=== PATIENT | male | born 1955 | race African-American/Black ===

== ENCOUNTER 2024-01-02 06:31 | Inpatient (IN) | payer MEDICARE, SELFPAY ==
[2024-01-02 08:29] LABS: #Basophils Less than 0.03 10x3/uL (0.0-0.2); #Eosinphils Less than 0.03 10x3/uL (0.0-0.7); %Basophils 0.2 % (0.0-1.0); %Eosinophils 0.1 % (0.0-10.0); %Lymphocytes 11.7 % (21.0-51.0); %Monocytes 4.1 % (0.0-10.0); %Neutrophils 83.2 % (42.0-75.0); Hematocrit 42.7 % (42.0-52.0); Hemoglobin 14.2 g/dL (14.0-18.0); Mean Corpuscular HGB CONC 33.3 g/dL (32.0-36.0); Mean Corpuscular Hemoglobin 29.8 pg (27.0-31.0); Mean Corpuscular Volume 89.7 fL (78.0-98.0); Mean Platelet Volume 9.2 fL (7.4-10.4); Platelet Count 258 10x3/uL (130-400); RBC Distribution Width 12.2 % (11.5-14.5); Red Blood Cell (RBC) Count 4.76 mill/uL (4.70-6.10)
[2024-01-02 08:46] LABS: Acetaminophen Less than 10 mcg/mL (10.0-30.0); Alcohol Less than 10.0 mg/dL (Less than 10); CK (CPK) 60 U/L (30-200); Lipase 22 U/L (8-78); Salicylate Less than 8.0 mg/dL (15.0-30.0)
[2024-01-02 08:47] LABS: ALT (SGPT) 36 U/L (8-55); AST (SGOT) 20 U/L (5-34); Albumin 3.6 g/dL (3.4-4.8); Alkaline Phosphatase 103 U/L (40-110); Anion Gap 17 mmol/L (10-20); BUN (Urea Nitrogen) 36 mg/dL (8.4-25.7); Bilirubin, Total 0.6 mg/dL (0.2-1.2); Calc. Creatinine Clearance 0 mL/min (70-130); Calcium 11.1 mg/dL (7.8-10.44); Carbon Dioxide 19 mmol/L (23-31); Chloride 100 mmol/L (98-107); Estimated GFR 33; Globulin 4.9 g/dL (2.4-3.5); Glucose 300 mg/dL (80-115); Potassium 4.1 mmol/L (3.5-5.1); Protein, Total 8.5 g/dL (5.8-8.1); Sodium 132 mmol/L (136-145)
[2024-01-02 09:05] LABS: Troponin I 0.042 ng/mL (< 0.028)
[2024-01-02] MEDS ORDERED: Labetalol HCl 100 MG/20 ML VIAL ONE (09:12)
[2024-01-02] MEDS ORDERED: Aspirin Chewable 81 MG TAB ONE (09:40)
[2024-01-02] MEDS ORDERED: Acetaminophen 325 MG TAB PO PRN (09:55)
[2024-01-02] MEDS ORDERED: Acetaminophen 650 MG Suppository PR PRN (09:55)
[2024-01-02] MEDS ORDERED: Ondansetron ODT 4 MG TAB PO PRN (09:55)
[2024-01-02] MEDS ORDERED: Ondansetron PF 4 MG/2 ML Vial IVP PRN (09:55)
[2024-01-02] MEDS ORDERED: Piperacillin/Tazobactam 3.375 GM VIAL ONE ×2 (10:35→16:58)
[2024-01-02] MEDS ORDERED: Sodium Chloride 0.9% 100 ML ONE (10:36)
[2024-01-02 10:44] LABS: Amphetamine Not Detected (NotDetected); Barbiturates Screen Not Detected (NotDetected); Benzodiazepine Screen Not Detected (NotDetected); Cocaine Metabolite Screen Not Detected (NotDetected); Methadone Not Detected (NotDetected); Methamphetamine Not Detected (NotDetected); Opiate Screen Not Detected (NotDetected); Oxycodone Screen Not Detected (NotDetected); Phencyclidine (PCP) Not Detected (NotDetected); THC/Cannabinoid Screen Not Detected (NotDetected); Tricyclic Screen Not Detected (NotDetected)
[2024-01-02 10:50] LABS: Bacteria/HPF 4+ HPF (None Seen); Bilirubin Negative (Negative); Blood, Urine Trace (Negative); CAUTI Indications for Culture Alt mental st,lethar; Ketone, Urine Negative (Negative); Leukocyte 500 Leu/uL (Negative); Nitrite 2+ (Negative); Protein, Urine (Dipstick) 100 mg/dL (Neg-Trace); RBC/HPF 0-3 HPF (0-3); Squamous Epithelial None Seen HPF (0-3); Urobilinogen Normal mg/dL (Less than 2); WBC/HPF Greater than 50 HPF (0-3); pH, Urine 5.5 (5.0-9.0)
[2024-01-02 11:06] LABS: Clarity Slightly Cloudy (Clear); Glucose, Urine (Dipstick) Unable to Interpret mg/dL (Negative)
[2024-01-02 11:08] LABS: Urine Culture Reflex Yes Yes
[2024-01-02] MEDS: Sodium Chloride 0.9% 1,000 ML IV SCH (11:14)
[2024-01-02] MEDS: Piperacillin/Tazobactam 3.375 GM in Sodium Chloride 0.9% 100 ML IVPB SCH ×2 (11:14→16:00)
[2024-01-02] MEDS: Amlodipine 10 MG TAB PO SCH (11:17)
[2024-01-02] MEDS ORDERED: Piperacillin/Tazobactam 3.375 GM in Sodium Chloride 0.9% 100 ML IVPB SCH (12:00)
[2024-01-02 12:02] LABS: Troponin I 0.035 ng/mL (< 0.028)
[2024-01-02 14:10] LABS: Lactic Acid 2.3 mmol/L (0.5-2.2)
[2024-01-02 14:59] LABS: Troponin I 0.043 ng/mL (< 0.028)
[2024-01-02] MEDS ORDERED: Dextrose 5% in Water 1,000 ML IV PRN (15:14)
[2024-01-02] MEDS ORDERED: Dextrose 50% Abboject 50 ML SYRINGE SLOW IVP PRN (15:14)
[2024-01-02] MEDS ORDERED: HumaLOG 300 UNITS/3 ML VIAL SC PRN (15:14)
[2024-01-02] MEDS ORDERED: Glucagon 1 MG/ML KIT IM PRN (15:14)
[2024-01-02] MEDS ORDERED: Heparin 5,000 UNITS/ML VIAL ONE (15:51)
[2024-01-02] MEDS: Heparin 5,000 UNITS/ML VIAL SC SCH (15:56)
[2024-01-02 19:36] VITALS: BMI 24.8
[2024-01-03] MEDS: Insulin Lispro 100 UNIT/ML 10 ML VIAL SC PRN (02:16)
[2024-01-03 04:08] LABS: #Basophils Less than 0.03 10x3/uL (0.0-0.2); %Basophils 0.3 % (0.0-1.0); %Eosinophils 0.9 % (0.0-10.0); %Lymphocytes 20.4 % (21.0-51.0); %Monocytes 6.4 % (0.0-10.0); %Neutrophils 71.6 % (42.0-75.0); Hemoglobin 12.7 g/dL (14.0-18.0); Mean Corpuscular HGB CONC 32.6 g/dL (32.0-36.0); Mean Corpuscular Hemoglobin 28.2 pg (27.0-31.0); Mean Corpuscular Volume 86.5 fL (78.0-98.0); Mean Platelet Volume 9.4 fL (7.4-10.4); Platelet Count 249 10x3/uL (130-400); RBC Distribution Width 12.3 % (11.5-14.5); Red Blood Cell (RBC) Count 4.51 mill/uL (4.70-6.10)
[2024-01-03 04:48] LABS: ALT (SGPT) 31 U/L (8-55); AST (SGOT) 24 U/L (5-34); Albumin 3.1 g/dL (3.4-4.8); Alkaline Phosphatase 80 U/L (40-110); Anion Gap 14 mmol/L (10-20); BUN (Urea Nitrogen) 27 mg/dL (8.4-25.7); Bilirubin, Total 0.8 mg/dL (0.2-1.2); Calc. Creatinine Clearance 49 mL/min (70-130); Calcium 10.3 mg/dL (7.8-10.44); Carbon Dioxide 21 mmol/L (23-31); Chloride 110 mmol/L (98-107); Estimated GFR 46; Globulin 4.5 g/dL (2.4-3.5); Glucose 148 mg/dL (80-115); Magnesium 1.8 mg/dL (1.6-2.6); Phosphorus 2.8 mg/dL (2.3-4.7); Potassium 4.1 mmol/L (3.5-5.1); Protein, Total 7.6 g/dL (5.8-8.1); Sodium 141 mmol/L (136-145)
[2024-01-03] MEDS: Amlodipine 10 MG TAB PO SCH (09:07)
[2024-01-03] MEDS ORDERED: Labetalol HCl 100 MG/20 ML VIAL SLOW IVP PRN (12:27)
[2024-01-03] MEDS: cefTRIAXone\\ROCEPHIN 1 GM in Sodium Chloride 0.9% 100 ML IVPB SCH (15:51)
[2024-01-03] MEDS: Atorvastatin Calcium 40 MG TAB PO SCH (20:03)
[2024-01-04 05:56] LABS: Anion Gap 13 mmol/L (10-20); BUN (Urea Nitrogen) 20 mg/dL (8.4-25.7); Calc. Creatinine Clearance 61 mL/min (70-130); Calcium 10.1 mg/dL (7.8-10.44); Carbon Dioxide 20 mmol/L (23-31); Cardiac Risk 4.1 (Less than 4.5); Chloride 112 mmol/L (98-107); Cholesterol 128 mg/dl (< 200 Desired); Estimated GFR 60; Glucose 148 mg/dL (80-115); HDL Cholesterol 31 mg/dL (>60 Neg Risk); LDL Cholesterol, Calculated 63 mg/dL; Potassium 3.6 mmol/L (3.5-5.1); Sodium 141 mmol/L (136-145); Triglycerides 169 mg/dL (Less than 150)
[2024-01-04 06:38] LABS: Hemoglobin A1c 10.8 % (4.0-6.0)
[2024-01-04] MEDS: Aspirin 325 MG TAB PO SCH (08:56)
[2024-01-04] MEDS: Amlodipine 10 MG TAB PO SCH (16:30)
[2024-01-04] MEDS: Metoprolol Tartrate 25 MG TAB PO SCH (20:55)
[2024-01-05 05:22] LABS: Anion Gap 12 mmol/L (10-20); BUN (Urea Nitrogen) 18 mg/dL (8.4-25.7); Calc. Creatinine Clearance 65 mL/min (70-130); Calcium 10.5 mg/dL (7.8-10.44); Carbon Dioxide 20 mmol/L (23-31); Chloride 110 mmol/L (98-107); Estimated GFR 64; Glucose 155 mg/dL (80-115); Potassium 3.8 mmol/L (3.5-5.1); Sodium 138 mmol/L (136-145)
[2024-01-05] MEDS: Finasteride 5 MG TAB PO SCH (08:49)
[2024-01-05] MEDS: Lisinopril 10 MG TAB PO SCH (08:52)
[2024-01-05] MEDS: Clopidogrel Bisulfate 75 MG TAB PO SCH (08:53)
[2024-01-05] MEDS: NIFEdipine XL 60 MG ER.TAB PO SCH (08:53)
[2024-01-05] MEDS ORDERED: Amlodipine 10 MG TAB PO SCH (09:00)
[2024-01-05] MEDS ORDERED: Milk Of Magnesia 30 ML UDCUP PO PRN (17:38)
[2024-01-06 05:27] LABS: Anion Gap 16 mmol/L (10-20); BUN (Urea Nitrogen) 21 mg/dL (8.4-25.7); Calc. Creatinine Clearance 69 mL/min (70-130); Calcium 10.6 mg/dL (7.8-10.44); Carbon Dioxide 19 mmol/L (23-31); Chloride 106 mmol/L (98-107); Estimated GFR 70; Glucose 226 mg/dL (80-115); Potassium 3.7 mmol/L (3.5-5.1); Sodium 137 mmol/L (136-145)
[2024-01-06] MEDS: glipiZIDE XL 5 mg ER.TAB PO SCH (09:14)
[2024-01-06] MEDS: Insulin Regular, Human 100 UNIT/ML 10 ML VIAL SC PRN (13:22)
[2024-01-06] MEDS: metFORMIN 500 MG TAB PO SCH (16:28)
[2024-01-06] MEDS: Sodium Bicarbonate Tab 325 MG TAB PO SCH (21:20)
[2024-01-06] MEDS: Lisinopril 20 MG TAB PO SCH (21:20)
[2024-01-06] MEDS: Metoprolol Tartrate 25 MG TAB PO SCH (21:20)
[2024-01-07 04:14] LABS: #Basophils Less than 0.03 10x3/uL (0.0-0.2); %Basophils 0.1 % (0.0-1.0); %Eosinophils 1.9 % (0.0-10.0); %Lymphocytes 21.2 % (21.0-51.0); %Monocytes 8.1 % (0.0-10.0); %Neutrophils 68.1 % (42.0-75.0); Hematocrit 38.9 % (42.0-52.0); Hemoglobin 12.8 g/dL (14.0-18.0); Mean Corpuscular HGB CONC 32.9 g/dL (32.0-36.0); Mean Corpuscular Hemoglobin 29.1 pg (27.0-31.0); Mean Corpuscular Volume 88.4 fL (78.0-98.0); Mean Platelet Volume 9.1 fL (7.4-10.4); Platelet Count 258 10x3/uL (130-400); RBC Distribution Width 12.3 % (11.5-14.5)
[2024-01-07 04:32] LABS: Anion Gap 14 mmol/L (10-20); BUN (Urea Nitrogen) 31 mg/dL (8.4-25.7); Calc. Creatinine Clearance 53 mL/min (70-130); Calcium 10.4 mg/dL (7.8-10.44); Carbon Dioxide 18 mmol/L (23-31); Chloride 108 mmol/L (98-107); Estimated GFR 51; Glucose 164 mg/dL (80-115); Potassium 3.5 mmol/L (3.5-5.1); Sodium 136 mmol/L (136-145)
[2024-01-07] MEDS: metFORMIN 500 MG TAB PO SCH (16:39)
[2024-01-07] MEDS: Lactated Ringer's 1,000 ML IV SCH (16:39)
[2024-01-07] MEDS: Metoprolol Tartrate 25 MG TAB PO SCH (21:37)
[2024-01-07] MEDS: NIFEdipine XL 60 MG ER.TAB PO SCH (21:37)
[2024-01-08 04:03] LABS: #Basophils Less than 0.03 10x3/uL (0.0-0.2); %Basophils 0.3 % (0.0-1.0); %Lymphocytes 26.6 % (21.0-51.0); %Monocytes 7.5 % (0.0-10.0); %Neutrophils 62.9 % (42.0-75.0); Hemoglobin 12.8 g/dL (14.0-18.0); Mean Corpuscular HGB CONC 32.8 g/dL (32.0-36.0); Mean Corpuscular Hemoglobin 29.3 pg (27.0-31.0); Mean Corpuscular Volume 89.2 fL (78.0-98.0); Mean Platelet Volume 9.1 fL (7.4-10.4); Platelet Count 267 10x3/uL (130-400); RBC Distribution Width 12.3 % (11.5-14.5); Red Blood Cell (RBC) Count 4.37 mill/uL (4.70-6.10)
[2024-01-08 04:38] LABS: Anion Gap 15 mmol/L (10-20); BUN (Urea Nitrogen) 37 mg/dL (8.4-25.7); Calc. Creatinine Clearance 51 mL/min (70-130); Calcium 10.4 mg/dL (7.8-10.44); Carbon Dioxide 19 mmol/L (23-31); Chloride 107 mmol/L (98-107); Estimated GFR 49; Glucose 125 mg/dL (80-115); Potassium 3.9 mmol/L (3.5-5.1); Sodium 137 mmol/L (136-145)
[2024-01-08 08:22] VITALS: TEMP 97.9
[2024-01-08] MEDS: Lisinopril 20 MG TAB PO SCH (08:54)
[2024-01-08 08:58] VITALS: BP 145/78
== END 2024-01-08 10:45 | DRG 65 ==
LOC: EDBD 06:31 → ERS 06:31 → ERHOLD 09:41 → 2NO 18:49 → 2SE 01-04 13:52
PROVIDERS: ADMIT Internal Medicine Critical Care Medicine; ATTEND Hospitalist
PROC: 4A00X4Z Measurement of Central Nervous Electrical Activity, External Approach (ICD-10-PCS; principal; 2024-01-06)
DX: I63.81 Other cerebral infarction due to occlusion or stenosis of small artery (principal); E87.20 Acidosis, unspecified; N17.9 Acute kidney failure, unspecified; N39.0 Urinary tract infection, site not specified; I5A Non-ischemic myocardial injury (non-traumatic); G93.49 Other encephalopathy; R41.82 Altered mental status, unspecified; R79.89 Other specified abnormal findings of blood chemistry; E11.65 Type 2 diabetes mellitus with hyperglycemia; E11.22 Type 2 diabetes mellitus with diabetic chronic kidney disease; I12.9 Hypertensive chronic kidney disease with stage 1 through stage 4 chronic kidney disease, or unspecified chronic kidney disease; N18.30 Chronic kidney disease, stage 3 unspecified; E83.52 Hypercalcemia; R47.81 Slurred speech; N40.0 Benign prostatic hyperplasia without lower urinary tract symptoms; J44.9 Chronic obstructive pulmonary disease, unspecified; Z99.81 Dependence on supplemental oxygen
CPT/HCPCS: 36415; 36416; 70450; 70551; 71045; 72125; 80048; 80053; 80061; 80306; 80307; 81001; 82140; 82550; 83036; 83605; 83690; 83735; 84100; 84153; 84154; 84443; 84484; 85025; 87040; 87086; 93005; 93306; 93880; 95700; 95711; 95819; J0696; J1644; J1815; J2543; J3490; J7050; J7120